=== PATIENT | female | born 1965 | race Caucasian/White ===

== ENCOUNTER 2017-06-14 09:29 | Day surgery (SDC) | payer OTHER ==
[~2017-06-14] VITALS: Ht 162.6 cm; Wt 96.0 kg
[2017-06-14] MEDS ORDERED: WELLBUTRIN PO (09:56)
[2017-06-14 09:59] VITALS: Ht 162.6 cm; Wt 96.0 kg
[2017-06-14] MEDS ORDERED: PROPOFOL 40 ML ONE (11:16)
[2017-06-14 12:01] VITALS: BP 117/69; RESP 14
--- NOTE | 2017-06-14 13:20 | GILP ---
DATE OF PROCEDURE: INDICATIONS FOR PROCEDURE: The patient is a 52-year-old female undergoing this procedure for colon cancer screening. The risks of the procedure, the later related complications, anesthetic risk and alternatives discussed and informed consent was obtained. DESCRIPTION OF PROCEDURE: The patient was brought to the GI lab, sedated by the anesthesiologist. After optimal sedation, digital examination was done which was normal. Scope was passed with much ease into the rectum. Advanced slowly all the way through the sigmoid, descending colon into the transverse colon. There was a flat sessile polyp, about 7-8 mm in diameter identified. Successfully with a cold snare polypectomy done. Scope was advanced all the way into the cecum. The polyp was retrieved. The scope was advanced all the way into the cecum. Appendiceal orifice, IC valve were identified. There was a small flat polyp in the presacral area, which was definitely lipoma. Scope was then gradually withdrawn. Rest of the colon appeared normal. Retroversion done which was normal. Scope was straightened out and removed with good patient tolerance. ASSESSMENT: 1. Polyp in the proximal transverse colon, sessile 7-8 mm in diameter successfully removed by cold snare technique and was retrieved. Negative all the way into the cecum. 2. Clarity was good and the prep was good to adequate. 3. Normal retroversion and digital examination. PLAN: Review the histopathology of the polyp. If adenomatous, ulcerated or tubular, she needs colonoscopy in next 5 years. Dictated By: Ashok Clifton MD /[email or web address] /Document#: [id number]
== END 2017-06-14 13:37 | disposition home or self-care (01) ==
LOC: GIL 09:29
PROVIDERS: ATTEND Internal Medicine Gastroenterology
DX: Z12.11 Encounter for screening for malignant neoplasm of colon (principal); D12.3 Benign neoplasm of transverse colon; E66.01 Morbid (severe) obesity due to excess calories; Z68.36 Body mass index [BMI] 36.0-36.9, adult
CPT/HCPCS: 45385; 88305; Z7610